=== PATIENT | male | born 1945 | race Hispanic/Latino ===

== ENCOUNTER 2018-04-19 09:42 | Emergency (ER) | payer MEDICARE ==
[2018-04-19 10:00] LABS: BASOPHILS % (AUTO) 1.2 % (0.0-5.0); HEMATOCRIT 43.3 % (42-54); LYMPHOCYTES % (AUTO) 36.9 % (21.0-51.0); MEAN CORPUSCULAR HEMOGLOBIN 29.6 pg (27.0-33.0); MEAN CORPUSCULAR HGB CONC 33.1 g/dL (32.0-36.0); MEAN CORPUSCULAR VOLUME 89.5 fL (79-99); MONOCYTES % (AUTO) 8.5 % (3.0-13.0); NEUTROPHILS % (AUTO) 49.4 % (40.0-77.0); NUCLEATED RED BLOOD CELLS 0.1 % (0.0-0.19); PLATELET COUNT (AUTO) 227 K/uL (130-400); RED BLOOD CELL COUNT(AUTO) 4.84 MIL/uL (4.50-6.20); RED CELL DISTRIBUTION WIDTH 13.8 % (11.0-15.5); WHITE BLOOD COUNT (AUTO) 5.1 K/uL (4.8-10.8)
[2018-04-19 10:06] LABS: CREATININE 1.2 mg/dL (0.5-1.5); POTASSIUM 3.6 mmol/L (3.5-5.1)
[2018-04-19 10:11] LABS: ALBUMIN 3.4 g/dL (3.5-5.0); BILIRUBIN,TOTAL 0.4 mg/dL (0.2-1.0); TOTAL PROTEIN, SERUM 7.4 g/dL (6.0-8.3)
[2018-04-19 10:19] LABS: B-TYPE NATRIURETIC PEPTIDE 21 pg/mL (0-100)
[2018-04-19 10:27] LABS: INR 0.89 (0.85-1.15); PARTIAL THROMBOPLASTIN TIME 27.8 SEC (26.3-35.5); PROTHROMBIN TIME 9.4 SEC (9.6-11.6)
[2018-04-19] MEDS ORDERED: METHYLPREDNISOLONE SOD SUCC 125MG/2ML VIAL ONE (10:47)
[2018-04-19] MEDS ORDERED: GUAIFENESIN-DM 200/20 MG 10 ML ONE (10:47)
[2018-04-19 10:52] LABS: APPEARANCE,URINE Clear (CLEAR); BILIRUBIN,URINE Negative (NEGATIVE); COLOR,URINE Yellow (YELLOW); GLUCOSE, URINE (UA) Negative (NEGATIVE); KETONES,URINE Negative (NEGATIVE); LEUKOCYTE ESTERASE ,URINE Negative (NEGATIVE); NITRATE,URINE Negative (NEGATIVE); OCCULT BLOOD,URINE Negative (NEGATIVE); PROTEIN,URINE Negative (NEGATIVE); UROBILINOGEN,URINE 0.2 mg/dL (0.2-1.0)
== END 2018-04-19 11:16 | disposition home or self-care (01) ==
LOC: EDH 09:42
DX: J20.9 Acute bronchitis, unspecified (principal); E11.9 Type 2 diabetes mellitus without complications; E07.9 Disorder of thyroid, unspecified; E78.5 Hyperlipidemia, unspecified
CPT/HCPCS: 36415; 71045; 80053; 81003; 82550; 83880; 84484; 85025; 85610; 85730; 87804 ×2; 93005; 96374; 99284; J2930

== ENCOUNTER → 2019-06-09 | Outpatient (CLI) | payer MEDICARE | END | disposition home or self-care (01) | LOC: SHCH 14:53 | PROVIDERS: ATTEND Internal Medicine Cardiovascular Disease | DX: I51.7 Cardiomegaly (principal) | CPT/HCPCS: 93306; 93356 ==

== ENCOUNTER → 2019-06-15 | Outpatient (CLI) | payer MEDICARE | END | disposition home or self-care (01) | LOC: SHCH 06-09 14:55 | PROVIDERS: ATTEND Internal Medicine Cardiovascular Disease | DX: R09.89 Other specified symptoms and signs involving the circulatory and respiratory systems (principal) | CPT/HCPCS: 93880 ==

== ENCOUNTER → 2019-06-16 | Outpatient (CLI) | payer MEDICARE ==
[~2019-06-16] MED LIST: REGADENOSON 0.4 MG/5 ML PF SYG IVP ONE
[2019-06-16] MEDS: REGADENOSON 0.4 MG/5 ML PF SYG IVP SCH ×2 (12:44→12:45)
== END | disposition home or self-care (01) ==
LOC: SHCH 06-09 14:57
PROVIDERS: ATTEND Internal Medicine Cardiovascular Disease
DX: R06.09 Other forms of dyspnea (principal); R07.89 Other chest pain; R53.1 Weakness
CPT/HCPCS: 78452; 93017; 96374; A9500 ×2; J2785

== ENCOUNTER 2019-08-18 12:11 | Emergency (ER) | payer MEDICARE ==
[2019-08-18] MEDS ORDERED: LIDOCAINE 5% TOPICAL PATCH TP ONE (12:39)
[2019-08-18] MEDS ORDERED: DIAZEPAM 5 MG TABLET ONE (12:40)
[2019-08-18] MEDS ORDERED: KETOROLAC TROMETHAMINE 30MG/ML ONE (13:18)
== END 2019-08-18 15:01 | disposition home or self-care (01) ==
LOC: EDH 12:11
DX: G57.02 Lesion of sciatic nerve, left lower limb (principal); E11.9 Type 2 diabetes mellitus without complications; E78.5 Hyperlipidemia, unspecified
CPT/HCPCS: 96372; 99283; J1885

== ENCOUNTER 2020-05-19 02:17 | Emergency (ER) | payer MEDICARE ==
[2020-05-19 02:56] LABS: BASOPHILS % (AUTO) 0.6 % (0.0-5.0); EOSINOPHILS % (AUTO) 1.3 % (0.0-8.0); HEMATOCRIT 39.8 % (42-54); MEAN CORPUSCULAR HEMOGLOBIN 29.8 pg (27.0-33.0); MEAN CORPUSCULAR HGB CONC 33.4 g/dL (32.0-36.0); MEAN CORPUSCULAR VOLUME 89.2 fL (79-99); MONOCYTES % (AUTO) 7.4 % (3.0-13.0); NEUTROPHILS % (AUTO) 75.3 % (40.0-77.0); PLATELET COUNT (AUTO) 253 K/uL (130-400); RED BLOOD CELL COUNT(AUTO) 4.46 MIL/uL (4.50-6.20); RED CELL DISTRIBUTION WIDTH 12.7 % (11.0-15.5); WHITE BLOOD COUNT (AUTO) 7.9 K/uL (4.8-10.8)
[2020-05-19] MEDS ORDERED: ASPIRIN 81MG TAB.CHEW ONE (03:01)
[2020-05-19] MEDS ORDERED: FAMOTIDINE/PF 20 MG/2 ML VIAL IV ONE (03:02)
[2020-05-19 03:15] LABS: APPEARANCE,URINE Clear (CLEAR); BILIRUBIN,URINE Negative (NEGATIVE); COLOR,URINE Yellow (YELLOW); GLUCOSE, URINE (UA) Negative (NEGATIVE); KETONES,URINE Trace mg/dL (NEGATIVE); LEUKOCYTE ESTERASE ,URINE Trace (NEGATIVE); NITRATE,URINE Negative (NEGATIVE); OCCULT BLOOD,URINE Negative (NEGATIVE); PH,URINE 6.5 (5.0-8.0); PROTEIN,URINE Negative (NEGATIVE)
[2020-05-19 03:15] LABS: CREATININE 1.2 mg/dL (0.5-1.5); POTASSIUM 4.1 mmol/L (3.5-5.1)
[2020-05-19 03:20] LABS: ALBUMIN 3.5 g/dL (3.5-5.0); BILIRUBIN,TOTAL 0.6 mg/dL (0.2-1.0); TOTAL PROTEIN, SERUM 7.2 g/dL (6.0-8.3)
[2020-05-19 03:30] LABS: BACTERIA,URINE None Seen /HPF (None Seen); RBC,URINE None Seen /HPF (0-1); SQUAMOUS EPITHELIAL CELL,UR Rare /HPF (0-2); WBC,URINE None Seen /HPF (0-1)
[2020-05-19 03:33] LABS: INR 0.98 (0.85-1.15); PROTHROMBIN TIME 10.7 SEC (9.6-11.6)
[2020-05-19 03:34] LABS: PARTIAL THROMBOPLASTIN TIME 24.6 SEC (26.3-35.5)
[2020-05-19 03:35] LABS: B-TYPE NATRIURETIC PEPTIDE 14 pg/mL (0-100)
[2020-05-19] MEDS ORDERED: ONDANSETRON HCL 4 MG/2 ML VIAL ONE (04:49)
[2020-05-19] MEDS ORDERED: IOHEXOL 350 MG/ML 100ML INFUS..BTL IV ONE (07:45)
== END 2020-05-19 09:52 | disposition home or self-care (01) ==
LOC: EDH 02:17
DX: R10.9 Unspecified abdominal pain (principal); R11.10 Vomiting, unspecified; E11.9 Type 2 diabetes mellitus without complications; E78.5 Hyperlipidemia, unspecified
CPT/HCPCS: 36415; 74177; 80053; 81001; 83690; 83880; 84484 ×2; 85025; 85610; 85730; 93005 ×2; 96374; 96375; 99285; J2405; J3490; Q9967

== ENCOUNTER → 2020-09-19 | Outpatient (CLI) | payer MEDICARE | END | disposition home or self-care (01) | LOC: RAH 10:53 | PROVIDERS: ATTEND Physical Medicine & Rehabilitation | DX: M47.22 Other spondylosis with radiculopathy, cervical region (principal); M48.02 Spinal stenosis, cervical region | CPT/HCPCS: 72052 ==

== ENCOUNTER 2020-10-30 09:02 | Emergency (ER) | payer MEDICARE ==
[~2020-10-30] VITALS: Ht 167.6 cm; Wt 79.8 kg
[2020-10-30] MEDS ORDERED: HYDROMORPHONE 0.5 MG SYG (0.5MG/0.5ML) IVP ONE (09:30)
[2020-10-30] MEDS ORDERED: ONDANSETRON 4MG INJ IVP ONE (09:30)
[2020-10-30] MEDS ORDERED: ONDANSETRON 4MG TABLET PO ONE (10:00)
[2020-10-30 10:04] LABS: BASOPHILS % (AUTO) 0.8 % (0.0-5.0); EOSINOPHILS % (AUTO) 2.3 % (0.0-8.0); HEMATOCRIT 42.8 % (42-54); MEAN CORPUSCULAR HEMOGLOBIN 29.9 pg (27.0-33.0); MEAN CORPUSCULAR HGB CONC 32.9 g/dL (32.0-36.0); MEAN CORPUSCULAR VOLUME 90.9 fL (79-99); MONOCYTES % (AUTO) 7.6 % (3.0-13.0); NEUTROPHILS % (AUTO) 73.9 % (40.0-77.0); PLATELET COUNT (AUTO) 215 K/uL (130-400); RED BLOOD CELL COUNT(AUTO) 4.71 MIL/uL (4.50-6.20); RED CELL DISTRIBUTION WIDTH 12.5 % (11.0-15.5); WHITE BLOOD COUNT (AUTO) 8.3 K/uL (4.8-10.8)
[2020-10-30 10:11] LABS: CREATININE 1.3 mg/dL (0.5-1.5); POTASSIUM 4.3 mmol/L (3.5-5.1)
[2020-10-30 10:18] LABS: ALBUMIN 3.8 g/dL (3.5-5.0); BILIRUBIN,TOTAL 0.6 mg/dL (0.2-1.0); TOTAL PROTEIN, SERUM 7.4 g/dL (6.0-8.3)
[2020-10-30] MEDS ORDERED: METR500T PO (10:55)
[2020-10-30] MEDS ORDERED: DICY20TA2 PO (10:55)
[2020-10-30] MEDS ORDERED: CIPR500T10 PO (10:55)
[2020-10-30] MEDS ORDERED: ONDANSETRON 4MG INJ ONE (11:26)
[2020-10-30] MEDS ORDERED: HYDROMORPHONE 0.5 MG SYG (0.5MG/0.5ML) ONE (11:26)
[2020-10-30 11:35] VITALS: BP 129/72
== END 2020-10-30 11:54 | disposition home or self-care (01) ==
LOC: EDH 09:02
DX: K57.32 Diverticulitis of large intestine without perforation or abscess without bleeding (principal); Z79.899 Other long term (current) drug therapy
CPT/HCPCS: 36415; 74176; 80053; 82150; 83690; 85025; 96374; 96375; 99284; J1170; J2405

== ENCOUNTER 2021-04-24 10:15 | Emergency (ER) | payer MEDICARE ==
[~2021-04-24] VITALS: Ht 167.6 cm; Wt 82.6 kg
[~2021-04-24 10:15] MED LIST changes: +ASPI-1197 PO; +EZET10TA13 PO; +LEVO75TA4 PO; +MULT-1367 PO; +RANO500T6 PO; -REGADENOSON 0.4 MG/5 ML PF SYG IVP ONE; +ROSU40TA21 PO; +SILD100T PO; +TAMS-1 PO
[2021-04-24 13:36] LABS: BASOPHILS % (AUTO) 1.1 % (0.0-5.0); EOSINOPHILS % (AUTO) 2.8 % (0.0-8.0); HEMATOCRIT 42.5 % (42-54); LYMPHOCYTES % (AUTO) 25.6 % (21.0-51.0); MEAN CORPUSCULAR HEMOGLOBIN 29.3 pg (27.0-33.0); MEAN CORPUSCULAR HGB CONC 33.6 g/dL (32.0-36.0); MEAN CORPUSCULAR VOLUME 87.1 fL (79-99); MONOCYTES % (AUTO) 9.5 % (3.0-13.0); NEUTROPHILS % (AUTO) 60.8 % (40.0-77.0); PLATELET COUNT (AUTO) 190 K/uL (130-400); RED BLOOD CELL COUNT(AUTO) 4.88 MIL/uL (4.50-6.20); RED CELL DISTRIBUTION WIDTH 12.4 % (11.0-15.5); WHITE BLOOD COUNT (AUTO) 5.4 K/uL (4.8-10.8)
[2021-04-24 13:44] LABS: CREATININE 1.3 mg/dL (0.5-1.5); POTASSIUM 3.9 mmol/L (3.5-5.1)
[2021-04-24 13:48] LABS: ALBUMIN 3.7 g/dL (3.5-5.0); BILIRUBIN,TOTAL 0.4 mg/dL (0.2-1.0); TOTAL PROTEIN, SERUM 7.1 g/dL (6.0-8.3)
[2021-04-24 14:05] LABS: B-TYPE NATRIURETIC PEPTIDE 16 pg/mL (0-100)
[2021-04-24 14:47] VITALS: BP 140/67
== END 2021-04-24 15:07 | disposition home or self-care (01) ==
LOC: EDH 10:15
DX: R42 Dizziness and giddiness (principal); E03.9 Hypothyroidism, unspecified; Z79.82 Long term (current) use of aspirin; Z79.899 Other long term (current) drug therapy
CPT/HCPCS: 36415; 70450; 71045; 80053; 83880; 84484; 85025; 93005

== ENCOUNTER → 2021-05-16 | Outpatient (CLI) | payer MEDICARE | END | disposition home or self-care (01) | LOC: RAH 10:58 | PROVIDERS: ATTEND Physical Medicine & Rehabilitation | DX: M48.02 Spinal stenosis, cervical region (principal); M47.812 Spondylosis without myelopathy or radiculopathy, cervical region | CPT/HCPCS: 72141 ==

== ENCOUNTER → 2021-05-20 | Outpatient (CLI) | payer MEDICARE | END | disposition home or self-care (01) | LOC: SHCH 11:06 | PROVIDERS: ATTEND Internal Medicine Cardiovascular Disease | DX: I25.110 Atherosclerotic heart disease of native coronary artery with unstable angina pectoris (principal); I77.9 Disorder of arteries and arterioles, unspecified | CPT/HCPCS: 93880 ==

== ENCOUNTER 2021-06-17 23:57 | Emergency (ER) | payer MEDICARE ==
[~2021-06-17] VITALS: Ht 167.6 cm; Wt 86.6 kg
[2021-06-18] MEDS ORDERED: LACTATED RINGERS 1000ML 1,000 ML IV ONE (00:30)
[2021-06-18] MEDS ORDERED: PANTOPRAZOLE 40 MG/VIAL IVP ONE (00:30)
[2021-06-18 00:43] LABS: BASOPHILS % (AUTO) 0.8 % (0.0-5.0); EOSINOPHILS % (AUTO) 2.7 % (0.0-8.0); HEMATOCRIT 42.1 % (42-54); LYMPHOCYTES % (AUTO) 16.2 % (21.0-51.0); MEAN CORPUSCULAR HEMOGLOBIN 29.8 pg (27.0-33.0); MEAN CORPUSCULAR VOLUME 87.7 fL (79-99); MONOCYTES % (AUTO) 7.5 % (3.0-13.0); NEUTROPHILS % (AUTO) 72.5 % (40.0-77.0); PLATELET COUNT (AUTO) 193 K/uL (130-400); RED CELL DISTRIBUTION WIDTH 12.7 % (11.0-15.5); WHITE BLOOD COUNT (AUTO) 9.5 K/uL (4.8-10.8)
[2021-06-18 01:03] LABS: APPEARANCE,URINE Clear (CLEAR); BILIRUBIN,URINE Negative (NEGATIVE); COLOR,URINE Yellow (YELLOW); GLUCOSE, URINE (UA) Negative (NEGATIVE); KETONES,URINE Negative (NEGATIVE); LEUKOCYTE ESTERASE ,URINE Negative (NEGATIVE); NITRATE,URINE Negative (NEGATIVE); OCCULT BLOOD,URINE Trace (NEGATIVE); PH,URINE 5.5 (5.0-8.0); PROTEIN,URINE Negative (NEGATIVE); UROBILINOGEN,URINE 0.2 mg/dL (0.2-1.0)
[2021-06-18 01:14] LABS: CREATININE 1.4 mg/dL (0.5-1.5); POTASSIUM 3.6 mmol/L (3.5-5.1)
[2021-06-18 01:16] LABS: BACTERIA,URINE Rare /HPF (None Seen); SQUAMOUS EPITHELIAL CELL,UR 0-2 /HPF (0-2); WBC,URINE 0-1 /HPF (0-1)
[2021-06-18 01:18] LABS: ALBUMIN 3.7 g/dL (3.5-5.0); BILIRUBIN,TOTAL 0.3 mg/dL (0.2-1.0); TOTAL PROTEIN, SERUM 7.1 g/dL (6.0-8.3)
[2021-06-18] MEDS ORDERED: MORPHINE 2 MG SYG ONE (01:27)
[2021-06-18] MEDS ORDERED: ONDANSETRON 4MG INJ ONE (01:27)
[2021-06-18] MEDS ORDERED: ONDANSETRON 4MG INJ IVP ONE (01:30)
[2021-06-18] MEDS ORDERED: MORPHINE 2 MG SYG IVP ONE (01:30)
[2021-06-18] MEDS ORDERED: IOHEXOL 350 MG/ML 100ML INFUS..BTL IV ONE (02:21)
[2021-06-18] MEDS ORDERED: ZOSYN 3.375GM +NS 50ML IV SCH (04:00)
[2021-06-18] MEDS ORDERED: AMOX-427 PO (04:09)
[2021-06-18 04:19] VITALS: BP 148/63
== END 2021-06-18 05:17 | disposition home or self-care (01) ==
LOC: EDH 23:57
DX: K57.90 Diverticulosis of intestine, part unspecified, without perforation or abscess without bleeding (principal); K57.92 Diverticulitis of intestine, part unspecified, without perforation or abscess without bleeding; E78.00 Pure hypercholesterolemia, unspecified; E86.0 Dehydration; R19.7 Diarrhea, unspecified; E03.9 Hypothyroidism, unspecified; Z98.890 Other specified postprocedural states; Z79.82 Long term (current) use of aspirin; Z79.899 Other long term (current) drug therapy
CPT/HCPCS: 36415; 74177; 80053; 81001; 83690; 84484; 85025; 93005; 96361; 96365; 96375; 99285; C9113; J2405; J2543; J7120; Q9967

== ENCOUNTER → 2021-10-15 | Outpatient (CLI) | payer MEDICARE ==
[~2021-10-15] MED LIST changes: +AMOX-427 PO; +REGADENOSON 0.4 MG/5 ML PF SYG IVP SCH
== END | disposition home or self-care (01) ==
LOC: SHCH 08:07
PROVIDERS: ATTEND Internal Medicine Cardiovascular Disease
DX: I20.0 Unstable angina (principal); R07.9 Chest pain, unspecified; R94.39 Abnormal result of other cardiovascular function study; Z95.0 Presence of cardiac pacemaker
CPT/HCPCS: 78452; 93017; 96374; A9500 ×2; J2785

== ENCOUNTER → 2021-10-30 | Outpatient (CLI) | payer MEDICARE ==
[~2021-10-30] MED LIST changes: -REGADENOSON 0.4 MG/5 ML PF SYG IVP SCH
== END | disposition home or self-care (01) ==
LOC: RAH 08:53
PROVIDERS: ATTEND Nurse Practitioner Family
DX: R41.3 Other amnesia (principal)
CPT/HCPCS: 70551

== ENCOUNTER → 2022-01-03 | Outpatient (CLI) | payer MEDICARE | END | disposition home or self-care (01) | LOC: RAH 10:13 | PROVIDERS: ATTEND Physical Medicine & Rehabilitation | DX: M47.26 Other spondylosis with radiculopathy, lumbar region (principal); M48.07 Spinal stenosis, lumbosacral region | CPT/HCPCS: 72114 ==

== ENCOUNTER 2022-04-25 06:43 | Emergency (ER) | payer MEDICARE, OTHER ==
[~2022-04-25] VITALS: Ht 167.6 cm; Wt 83.5 kg
[2022-04-25 07:13] LABS: BASOPHILS % (AUTO) 0.7 % (0.0-5.0); EOSINOPHILS % (AUTO) 1.3 % (0.0-8.0); HEMATOCRIT 41.4 % (42-54); LYMPHOCYTES % (AUTO) 11.6 % (21.0-51.0); MEAN CORPUSCULAR HGB CONC 34.3 g/dL (32.0-36.0); MEAN CORPUSCULAR VOLUME 87.5 fL (79-99); MONOCYTES % (AUTO) 7.8 % (3.0-13.0); NEUTROPHILS % (AUTO) 78.4 % (40.0-77.0); PLATELET COUNT (AUTO) 199 K/uL (130-400); RED BLOOD CELL COUNT(AUTO) 4.73 MIL/uL (4.50-6.20); RED CELL DISTRIBUTION WIDTH 12.7 % (11.0-15.5); WHITE BLOOD COUNT (AUTO) 8.4 K/uL (4.8-10.8)
[2022-04-25 07:27] LABS: ALBUMIN 3.5 g/dL (3.5-5.0); CREATININE 1.3 mg/dL (0.5-1.5); POTASSIUM 3.6 mmol/L (3.5-5.1); TOTAL PROTEIN, SERUM 6.9 g/dL (6.0-8.3)
[2022-04-25] MEDS ORDERED: 0.9%NACL 1000ML 1,000 ML IV ONE (07:30)
[2022-04-25] MEDS ORDERED: PANTOPRAZOLE 40 MG/VIAL IVP STA (08:03)
[2022-04-25 08:25] LABS: APPEARANCE,URINE CLEAR (CLEAR); BILIRUBIN,URINE NEGATIVE (NEGATIVE); COLOR,URINE LIGHT-YELLOW (YELLOW); GLUCOSE, URINE (UA) NEGATIVE (NEGATIVE); KETONES,URINE 5 mg/dL (NEGATIVE); LEUKOCYTE ESTERASE ,URINE NEGATIVE Leu/uL (NEGATIVE); NITRATE,URINE NEGATIVE (NEGATIVE); OCCULT BLOOD,URINE SMALL (NEGATIVE); PROTEIN,URINE NEGATIVE (NEGATIVE); UROBILINOGEN,URINE 0.2 mg/dL (0.2-1.0)
[2022-04-25] MEDS ORDERED: ZOSYN 3.375GM +NS 50ML IV ONE (08:30)
[2022-04-25 08:52] LABS: MUCUS,URINE RARE LPF (None Seen); SQUAMOUS EPITHELIAL CELL,UR RARE /HPF (0-2)
[2022-04-25] MEDS ORDERED: LEVO750T68 PO (09:03)
[2022-04-25 10:04] VITALS: BP 116/50
== END 2022-04-25 10:09 | disposition home or self-care (01) ==
LOC: EDH 06:43
DX: K57.92 Diverticulitis of intestine, part unspecified, without perforation or abscess without bleeding (principal); E03.9 Hypothyroidism, unspecified; E78.00 Pure hypercholesterolemia, unspecified; Z79.82 Long term (current) use of aspirin; Z95.0 Presence of cardiac pacemaker; Z79.2 Long term (current) use of antibiotics; Z79.899 Other long term (current) drug therapy
CPT/HCPCS: 99285; 74176; 96365; 96361; 96375; 80053; 83690; 85025; 81001; 36415; 93005; J7030; J2543; C9113

== ENCOUNTER 2023-02-04 01:02 | Emergency (ER) | payer OTHER ==
[~2023-02-04] VITALS: Ht 167.6 cm; Wt 82.6 kg
[~2023-02-04 01:02] MED LIST changes: -EZET10TA13 PO; +EZET10TA81 PO; +LEVO750T68 PO
[2023-02-04 01:03] VITALS: BP 166/85; PULSE 78; RESP 18; O2SAT 97
[2023-02-04 01:28] LABS: BASOPHILS # (AUTO) 0.08 K/uL (0.00-0.20); BASOPHILS % (AUTO) 0.9 % (0.0-5.0); EOSINOPHILS # (AUTO) 0.25 K/uL (0.00-0.70); EOSINOPHILS % (AUTO) 2.7 % (0.0-8.0); HEMATOCRIT 42.2 % (42-54); IMMATURE GRANULOCYTE ABSOLUTE 0.03 K/uL (0-1); LYMPHOCYTES # (AUTO) 1.6 K/uL (1.0-4.8); LYMPHOCYTES % (AUTO) 17.8 % (21.0-51.0); MEAN CORPUSCULAR HEMOGLOBIN 30.1 pg (27.0-33.0); MEAN CORPUSCULAR HGB CONC 33.4 g/dL (32.0-36.0); MONOCYTES # (AUTO) 0.8 K/uL (0.1-1.0); MONOCYTES % (AUTO) 8.3 % (3.0-13.0); NEUTROPHILS # (AUTO) 6.5 K/uL (1.8-7.7); PLATELET COUNT (AUTO) 194 K/uL (130-400); RED BLOOD CELL COUNT(AUTO) 4.69 MIL/uL (4.50-6.20); RED CELL DISTRIBUTION WIDTH 12.4 % (11.0-15.5); WHITE BLOOD COUNT (AUTO) 9.2 K/uL (4.8-10.8)
[2023-02-04 01:35] LABS: APPEARANCE,URINE CLEAR (CLEAR); BILIRUBIN,URINE NEGATIVE (NEGATIVE); GLUCOSE, URINE (UA) NEGATIVE (NEGATIVE); KETONES,URINE NEGATIVE (NEGATIVE); LEUKOCYTE ESTERASE ,URINE NEGATIVE Leu/uL (NEGATIVE); NITRATE,URINE NEGATIVE (NEGATIVE); OCCULT BLOOD,URINE SMALL (NEGATIVE); PROTEIN,URINE NEGATIVE (NEGATIVE); UROBILINOGEN,URINE 0.2 mg/dL (0.2-1.0)
[2023-02-04 01:38] LABS: CREATININE 1.3 mg/dL (0.5-1.5); POTASSIUM 3.9 mmol/L (3.5-5.1)
[2023-02-04 01:41] LABS: ADD UA MICROSCOPIC YES; COLOR,URINE Light-Yellow (YELLOW)
[2023-02-04 01:42] LABS: ALBUMIN 3.7 g/dL (3.5-5.0); BILIRUBIN,TOTAL 0.4 mg/dL (0.2-1.0); TOTAL PROTEIN, SERUM 7.2 g/dL (6.0-8.3)
[2023-02-04 01:44] LABS: MUCUS,URINE RARE LPF (None Seen); RBC,URINE 0-1 /HPF (0-1); WBC,URINE 0-1 /HPF (0-1)
[2023-02-04] MEDS ORDERED: IOHEXOL 350 MG/ML 100ML INFUS..BTL IV ONE (02:50)
[2023-02-04] MEDS ORDERED: IBUP-1493 PO (03:58)
[2023-02-04] MEDS ORDERED: LEVO-70 PO (03:58)
[2023-02-04] MEDS ORDERED: AMOX1TAB16 PO (03:58)
[2023-02-04] MEDS ORDERED: LEVOFLOXACIN 750 MG TABLET PO SCH (04:00)
[2023-02-04] MEDS ORDERED: IBUPROFEN 800 MG TAB PO ONE (04:30)
== END 2023-02-04 04:23 | disposition home or self-care (01) ==
LOC: EDH 01:04
DX: K57.32 Diverticulitis of large intestine without perforation or abscess without bleeding (principal); E11.9 Type 2 diabetes mellitus without complications; Z79.82 Long term (current) use of aspirin; Z95.810 Presence of automatic (implantable) cardiac defibrillator
CPT/HCPCS: 99285; 74177; 84484; 80053; 83690; 85025; 81001; 36415; 93005; Q9967

== ENCOUNTER 2023-02-08 12:13 | Emergency (ER) | payer OTHER ==
[~2023-02-08] VITALS: Ht 167.6 cm; Wt 81.6 kg
[~2023-02-08 12:13] MED LIST changes: -AMOX-427 PO; +AMOX1TAB16 PO; +IBUP-1493 PO; +LEVO-70 PO; -LEVO750T68 PO
[2023-02-08 12:51] LABS: BASOPHILS # (AUTO) 0.06 K/uL (0.00-0.20); BASOPHILS % (AUTO) 0.5 % (0.0-5.0); EOSINOPHILS # (AUTO) 0.09 K/uL (0.00-0.70); EOSINOPHILS % (AUTO) 0.8 % (0.0-8.0); HEMATOCRIT 43.8 % (42-54); IMMATURE GRANULOCYTE ABSOLUTE 0.03 K/uL (0-1); LYMPHOCYTES # (AUTO) 1.7 K/uL (1.0-4.8); LYMPHOCYTES % (AUTO) 15.3 % (21.0-51.0); MEAN CORPUSCULAR HEMOGLOBIN 30.2 pg (27.0-33.0); MEAN CORPUSCULAR VOLUME 88.8 fL (79-99); MONOCYTES # (AUTO) 0.8 K/uL (0.1-1.0); MONOCYTES % (AUTO) 7.4 % (3.0-13.0); NEUTROPHILS # (AUTO) 8.5 K/uL (1.8-7.7); NEUTROPHILS % (AUTO) 75.7 % (40.0-77.0); PLATELET COUNT (AUTO) 230 K/uL (130-400); RED BLOOD CELL COUNT(AUTO) 4.93 MIL/uL (4.50-6.20); RED CELL DISTRIBUTION WIDTH 12.4 % (11.0-15.5); WHITE BLOOD COUNT (AUTO) 11.2 K/uL (4.8-10.8)
[2023-02-08 13:00] LABS: CREATININE 1.4 mg/dL (0.5-1.5); POTASSIUM 3.6 mmol/L (3.5-5.1)
[2023-02-08 13:09] LABS: ALBUMIN 3.8 g/dL (3.5-5.0); BILIRUBIN,TOTAL 0.7 mg/dL (0.2-1.0); TOTAL PROTEIN, SERUM 7.9 g/dL (6.0-8.3)
[2023-02-08 16:05] VITALS: BP 158/78; PULSE 88; RESP 18; O2SAT 99
[2023-02-08 16:05] LABS: APPEARANCE,URINE CLEAR (CLEAR); BILIRUBIN,URINE NEGATIVE (NEGATIVE); COLOR,URINE LIGHT-YELLOW (YELLOW); GLUCOSE, URINE (UA) NEGATIVE (NEGATIVE); KETONES,URINE NEGATIVE (NEGATIVE); LEUKOCYTE ESTERASE ,URINE NEGATIVE Leu/uL (NEGATIVE); NITRATE,URINE NEGATIVE (NEGATIVE); OCCULT BLOOD,URINE SMALL (NEGATIVE); PROTEIN,URINE NEGATIVE (NEGATIVE); UROBILINOGEN,URINE 0.2 mg/dL (0.2-1.0)
[2023-02-08 16:06] LABS: ADD UA MICROSCOPIC YES
[2023-02-08 16:19] LABS: MUCUS,URINE RARE LPF (None Seen); RBC,URINE 0-1 /HPF (0-1); WBC,URINE 0-1 /HPF (0-1)
== END 2023-02-08 16:10 | disposition home or self-care (01) ==
LOC: EDH 12:13
DX: K57.32 Diverticulitis of large intestine without perforation or abscess without bleeding (principal); R10.32 Left lower quadrant pain; E03.9 Hypothyroidism, unspecified; E11.9 Type 2 diabetes mellitus without complications; Z79.899 Other long term (current) drug therapy
CPT/HCPCS: 36415; 80053; 81001; 83690; 84484; 85025; 93005

== ENCOUNTER → 2023-07-13 | Outpatient (CLI) | payer OTHER | END | disposition home or self-care (01) | LOC: RAH 12:37 | PROVIDERS: ATTEND Physician Assistant | DX: M25.551 Pain in right hip (principal); M25.552 Pain in left hip | CPT/HCPCS: 73521 ==

== ENCOUNTER 2023-08-03 20:36 | Emergency (ER) | payer OTHER ==
[~2023-08-03] VITALS: Ht 167.6 cm; Wt 83.0 kg
[2023-08-03 22:02] LABS: BASOPHILS # (AUTO) 0.07 K/uL (0.00-0.20); BASOPHILS % (AUTO) 0.5 % (0.0-5.0); EOSINOPHILS % (AUTO) 0.8 % (0.0-8.0); IMMATURE GRANULOCYTE ABSOLUTE 0.06 K/uL (0-1); LYMPHOCYTES # (AUTO) 1.1 K/uL (1.0-4.8); LYMPHOCYTES % (AUTO) 8.2 % (21.0-51.0); MEAN CORPUSCULAR HEMOGLOBIN 30.5 pg (27.0-33.0); MEAN CORPUSCULAR HGB CONC 34.8 g/dL (32.0-36.0); MEAN CORPUSCULAR VOLUME 87.8 fL (79-99); MONOCYTES # (AUTO) 0.8 K/uL (0.1-1.0); MONOCYTES % (AUTO) 6.4 % (3.0-13.0); NEUTROPHILS # (AUTO) 10.9 K/uL (1.8-7.7); NEUTROPHILS % (AUTO) 83.6 % (40.0-77.0); PLATELET COUNT (AUTO) 214 K/uL (130-400); RED BLOOD CELL COUNT(AUTO) 5.01 MIL/uL (4.50-6.20)
[2023-08-03 22:14] LABS: CREATININE 1.2 mg/dL (0.5-1.3); POTASSIUM 3.8 mmol/L (3.5-5.1)
[2023-08-03 22:19] LABS: BILIRUBIN,TOTAL 0.6 mg/dL (0.2-1.0); TOTAL PROTEIN, SERUM 7.7 g/dL (6.0-8.3)
[2023-08-03 22:26] LABS: APPEARANCE,URINE CLEAR (CLEAR); BILIRUBIN,URINE NEGATIVE (NEGATIVE); COLOR,URINE LIGHT-YELLOW (YELLOW); GLUCOSE, URINE (UA) NEGATIVE (NEGATIVE); KETONES,URINE NEGATIVE (NEGATIVE); LEUKOCYTE ESTERASE ,URINE NEGATIVE Leu/uL (NEGATIVE); NITRATE,URINE NEGATIVE (NEGATIVE); OCCULT BLOOD,URINE MODERATE (NEGATIVE); PROTEIN,URINE NEGATIVE (NEGATIVE); UROBILINOGEN,URINE 0.2 mg/dL (0.2-1.0)
[2023-08-03 22:27] LABS: ADD UA MICROSCOPIC YES
[2023-08-03 22:28] LABS: B-TYPE NATRIURETIC PEPTIDE 36 pg/mL (0-100)
[2023-08-03 22:31] LABS: RAPID GROUP A STREP negative (NEGATIVE)
[2023-08-03 22:38] LABS: SARS-CoV-2, RNA, NAAT NEGATIVE SARS CoV-2 (NEGATIVE)
[2023-08-03 22:40] LABS: SQUAMOUS EPITHELIAL CELL,UR RARE /HPF (0-2); WBC,URINE 0-1 /HPF (0-1)
[2023-08-03 22:41] VITALS: PULSE 19
[2023-08-03] MEDS: IPRATROPIUM/ALBUTEROL SULFATE 3 ML SOLUTION IH ONE ×2 (22:41)
[2023-08-03 22:42] LABS: INFLUENZA TYPE A Negative For Type A (NEGATIVE); INFLUENZA TYPE B Negative For Type B (NEGATIVE)
[2023-08-03] MEDS: SOLU-MEDROL 125MG VIAL IVP ONE (22:43)
[2023-08-03] MEDS: ONDANSETRON 4MG INJ IVP ONE (22:43)
[2023-08-04] MEDS ORDERED: PRED20TA3 PO (00:37)
[2023-08-04] MEDS ORDERED: ALBU90AE2 IH (00:37)
[2023-08-04] MEDS ORDERED: CEFU500T67 PO (00:37)
[2023-08-04 00:51] VITALS: BP 148/79; PULSE 97; RESP 18; O2SAT 98
== END 2023-08-04 00:57 | disposition home or self-care (01) ==
LOC: EDH 20:36
DX: J20.9 Acute bronchitis, unspecified (principal); R06.02 Shortness of breath; R11.2 Nausea with vomiting, unspecified; R07.9 Chest pain, unspecified; E03.9 Hypothyroidism, unspecified; E11.9 Type 2 diabetes mellitus without complications; E78.00 Pure hypercholesterolemia, unspecified; Z20.822 Contact with and (suspected) exposure to COVID-19; Z79.82 Long term (current) use of aspirin; Z79.899 Other long term (current) drug therapy; Z98.890 Other specified postprocedural states
CPT/HCPCS: 99284; 96374; 71045; 87635; 96375; 84484; 80053; 83880; 85025; 87880; 87804 ×2; 81001; 36415; 93005; 94640; J2930; J2405

== ENCOUNTER 2023-09-27 18:19 | Emergency (ER) | payer OTHER ==
[~2023-09-27] VITALS: Ht 167.6 cm; Wt 81.6 kg
[~2023-09-27 18:19] MED LIST changes: +ALBU90AE3 IH; -AMOX1TAB16 PO; +CEFU500T67 PO; -LEVO-70 PO; +PRED20TA3 PO; -ROSU40TA21 PO; +ROSU40TA70 PO
[2023-09-27 18:42] LABS: BASOPHILS # (AUTO) 0.08 K/uL (0.00-0.20); BASOPHILS % (AUTO) 1.2 % (0.0-5.0); EOSINOPHILS # (AUTO) 0.44 K/uL (0.00-0.70); EOSINOPHILS % (AUTO) 6.4 % (0.0-8.0); HEMATOCRIT 41.3 % (42-54); IMMATURE GRANULOCYTE ABSOLUTE 0.01 K/uL (0-1); LYMPHOCYTES # (AUTO) 2.8 K/uL (1.0-4.8); LYMPHOCYTES % (AUTO) 40.2 % (21.0-51.0); MEAN CORPUSCULAR HEMOGLOBIN 30.2 pg (27.0-33.0); MEAN CORPUSCULAR HGB CONC 34.1 g/dL (32.0-36.0); MEAN CORPUSCULAR VOLUME 88.4 fL (79-99); MONOCYTES # (AUTO) 0.6 K/uL (0.1-1.0); MONOCYTES % (AUTO) 8.2 % (3.0-13.0); NEUTROPHILS % (AUTO) 43.9 % (40.0-77.0); PLATELET COUNT (AUTO) 244 K/uL (130-400); RED BLOOD CELL COUNT(AUTO) 4.67 MIL/uL (4.50-6.20); RED CELL DISTRIBUTION WIDTH 12.8 % (11.0-15.5); WHITE BLOOD COUNT (AUTO) 6.9 K/uL (4.8-10.8)
[2023-09-27 18:55] LABS: CREATININE 1.2 mg/dL (0.5-1.3); POTASSIUM 3.6 mmol/L (3.5-5.1)
[2023-09-27 19:04] LABS: ALBUMIN 3.6 g/dL (3.5-5.0); BILIRUBIN,TOTAL 0.4 mg/dL (0.2-1.0); TOTAL PROTEIN, SERUM 7.3 g/dL (6.0-8.3)
[2023-09-27 19:28] LABS: INR <= 0.93 (0.85-1.15); PROTHROMBIN TIME 10.3 SEC (9.6-11.6)
[2023-09-27 19:29] LABS: PARTIAL THROMBOPLASTIN TIME 26.9 SEC (26.3-35.5)
[2023-09-27 19:32] VITALS: BP 146/66; PULSE 77; RESP 17; O2SAT 99
[2023-09-27] MEDS ORDERED: CEPH500B PO (20:21)
== END 2023-09-27 20:36 | disposition home or self-care (01) ==
LOC: EDH 18:19
DX: I10 Essential (primary) hypertension (principal); M79.602 Pain in left arm; E11.9 Type 2 diabetes mellitus without complications; E78.00 Pure hypercholesterolemia, unspecified; E03.9 Hypothyroidism, unspecified; Z95.0 Presence of cardiac pacemaker; Z79.899 Other long term (current) drug therapy; Z79.2 Long term (current) use of antibiotics; Z79.82 Long term (current) use of aspirin
CPT/HCPCS: 36415; 71045; 80053; 83605; 84145; 84484; 85025; 85610; 85730; 93005

== ENCOUNTER → 2023-10-21 | Outpatient (CLI) | payer OTHER ==
[~2023-10-21] MED LIST changes: +CEPH500B PO
== END | disposition home or self-care (01) ==
LOC: SHCH 12:52
PROVIDERS: ATTEND Internal Medicine Cardiovascular Disease
DX: I87.2 Venous insufficiency (chronic) (peripheral) (principal); I82.433 Acute embolism and thrombosis of popliteal vein, bilateral; I82.413 Acute embolism and thrombosis of femoral vein, bilateral
CPT/HCPCS: 93970

== ENCOUNTER → 2024-01-06 | Outpatient (CLI) | payer OTHER ==
[~2024-01-06] MED LIST changes: +IOHEXOL 350 MG/ML 100ML INFUS..BTL IV ONE; -ROSU40TA70 PO; +ROSU40TA88 PO; +metoPROLOL tartRATE 1 MG/ML 5ML VIAL IV ONE
== END | disposition home or self-care (01) ==
LOC: RAH 10:34
PROVIDERS: ATTEND Internal Medicine Cardiovascular Disease
DX: I25.10 Atherosclerotic heart disease of native coronary artery without angina pectoris (principal); R07.9 Chest pain, unspecified; R94.39 Abnormal result of other cardiovascular function study; I47.10 Supraventricular tachycardia, unspecified
CPT/HCPCS: 75574; J3490; Q9967

== ENCOUNTER 2024-09-30 07:17 | Emergency (ER) | payer OTHER ==
[~2024-09-30] VITALS: Ht 167.6 cm; Wt 82.1 kg
[~2024-09-30 07:17] MED LIST changes: -IOHEXOL 350 MG/ML 100ML INFUS..BTL IV ONE; -TAMS-1 PO; +TAMS-55 PO; -metoPROLOL tartRATE 1 MG/ML 5ML VIAL IV ONE
--- NOTE | 2024-09-30 07:43 | ERN ---
General Chief Complaint: Abdominal Pain Stated Complaint: ABDOMINAL PAIN Time Seen by MD: 07:20 History of Present Illness Initial Comments 79M presents for lower abdominal pain for one week. Patient reports some to [place]. He had urgency and increased urination with some suprapubic pain. He went to his primary provider and an was prescribed Levaquin. He has taken three doses. He reports that he felt like he was improving, but today he continues with a lower abdominal pain. He reports he has a history of diverticulitis, and he is concerned that this may be causing his symptoms. No fevers. No flank pain. No vomiting. P.o. tolerant. No diarrhea or bloody stool. Allergies: Coded Allergies: No Known Drug Allergies (Unverified Allergy, 03/24/12) Home Meds Active Scripts Cephalexin Monohydrate (Keflex) 500 Mg Cap, 500 MG PO BID for 7 Days, #14 CAP Prov:EMELY ADAMS MD 09/27/23 Albuterol Sulfate (Proair Digihaler) 90 Mcg Aer.pw.bas, 2 PUFF IH QID, #1 UNIT Prov:JEAN RENEE MD 08/04/23 Prednisone (Prednisone) 20 Mg Tablet, 1 TAB PO AD for 6 Days, #14 TAB 0 Refills TAKE 3 TAB BY MOUTH daily X3 DAYS, THEN TAKE 2 TAB BY MOUTH daily X2 DAYS, THEN TAKE 1 TAB BY MOUTH ONCE A DAY X1 DAY. Prov:JEAN RENEE MD 08/04/23 Cefuroxime Axetil (Cefuroxime) 500 Mg Tablet, 500 MG PO BID, #20 TAB Prov:JEAN RENEE MD 08/04/23 Ibuprofen (Motrin/Advil) 800 Mg Tab, 800 MG PO TID, #30 TAB Prov:JEAN RENEE MD 02/04/23 Reported Medications Tamsulosin HCl (Flomax) 0.4 Mg Cap.er.24h, 0.4 MG PO DAILY, CAPSULE. 11/17/20 Rosuvastatin Calcium (Rosuvastatin Calcium) 40 Mg Tablet, 40 MG PO HS, TAB 11/17/20 Sildenafil Citrate (Viagra) 100 Mg Tablet, 100 MG PO AD, TAB 11/17/20 Multivitamin (Multivitamin) 1 Each Tablet, 1 EACH PO DAILY, TAB 11/17/20 Aspirin (Aspirin) 81 Mg Tab.chew, 81 MG PO DAILY, TAB.CHEW 11/17/20 Levothyroxine Sodium (Synthroid 75 Mcg Tab) 75 Mcg Tablet, 75 MCG PO ACBKFST, TAB 11/17/20 Ezetimibe (Zetia) 10 Mg Tablet, 10 MG PO HS, TAB 11/17/20 Ranolazine (Ranolazine ER) 500 Mg Tab.er.12h, 500 MG PO BID, TAB 11/17/20 Past Medical History Past Medical History: Diabetes-Type II, High Cholesterol, Hypertension, Hypothyroid Medical History Other: DIVERTICULITIS, PTSD, PACEMAKER Past Surgical History: Pacer/AICD, Other Surgical History Other: RIGHT SHOULDER Family History Family History: HTN Social History Social History: Negative, Lives with family ROS Dictation CONSTITUTIONAL: No chills, no fever, no weakness, no diaphoresis, no malaise. HEAD/FACE: No signs of trauma. EENT: No eye pain, no blurred vision, no tearing, no double vision, no ear pain, no ear discharge, no nose pain, no nasal congestion, no throat pain, no throat swelling, no mouth pain. RESPIRATORY: No cough, no orthopnea, no SOB, no stridor, no wheezing. CARDIOVASCULAR: No chest pain, no edema, no palpitations, no syncope. GASTROINTESTINAL/ABDOMINAL: Lower abdominal pain GENITOURINARY: Urgency and frequency, no dysuria MUSCULOSKELETAL: No back pain, no gout, no joint pain, no joint swelling, no muscle pain, no muscle stiffness, no neck pain. INTEGUMENTARY: No change in color, no change in hair/nails, no dryness, no lesion, no lumps, no rash. NEUROLOGICAL/PSYCH: No anxiety, not depressed, no emotional problem, no headache, no numbness, no pre-existing deficit, no history of seizures, no tremors, no weakness. HEMATOLOGIC/LYMPHATIC: Not anemic, no history of blood clots, no apparent bleeding, no bruising, glands not swollen. All Systems Negative, Except as Noted. Physical Exam Physical Exam Dictation VITAL SIGNS: Reviewed. GENERAL APPEARANCE: Alert, oriented x3, no acute distress, obese. HEAD AND FACE: Non-traumatic. EYES: PERRL, pink conjunctivas, eyelid no trauma, anterior chamber clear. EARS: Pinnas intact and no signs of trauma or erythema. Ear canals clear and no discharge. TMs no erythema. NOSE: No discharge, no bleeding. OROPHARYNX: Mouth normal, teeth no caries, tongue pink. Pharynx clear, no erythema. Tonsils no exudates, no abscesses noted. Mucous membrane moist. NECK: Supple, non-tender, no thyromegaly, no masses, no JVD, no bruits. BREAST: Deferred. CHEST: No tenderness, no crepitus, no paradoxical movement, no retractions. LUNGS: Clear, well-ventilated, symmetric, no rales, no wheezing, no rhonchi, no stridor, good breath sounds bilaterally. HEART: Regular rate, regular rhythm, no murmur, no gallops. VASCULAR: No peripheral edema. ABDOMEN: Mild suprapubic tenderness RECTAL: Deferred. GENITAL: Deferred. NEUROLOGICAL: Normal speech, gross motor function intact, gross sensory function intact. MUSCULOSKELETAL: Neck nontender, full range of motion, back nontender, full range of motion. EXTREMITIES: Nontender, full range of motion. SKIN: Color pink, dry, no turgor, no rash, no lacerations, no abrasions, no contusions. LYMPHATICS: Deferred. Results Laboratory and Microbiology Lab and Micro Result Laboratory Tests Test 09/30/24 07:27 09/30/24 07:44 Urine Color LIGHT-YELLOW (YELLOW) Urine Appearance CLEAR (CLEAR) Urine pH 5.5 (5.0-8.0) Urine Specific [place] 1.011 (1.001-1.031) Urine Protein NEGATIVE mg/dL (NEGATIVE) Urine Glucose (UA) NEGATIVE mg/dL (NEGATIVE) Urine Ketones NEGATIVE mg/dL (NEGATIVE) Urine Occult Blood SMALL (NEGATIVE) H Urine Nitrate NEGATIVE (NEGATIVE) Urine Bilirubin NEGATIVE mg/dL (NEGATIVE) Urine Urobilinogen 0.2 mg/dL (0.2-1.0) Urine Leukocyte Esterase NEGATIVE Arlene/uL White Blood Count 6.1 K/uL (4.8-10.8) Red Blood Count 4.72 MIL/uL (4.50-6.20) Hemoglobin 14.4 g/dL (14.0-18.0) Hematocrit 42.5 % (42-54) Mean Corpuscular Volume 90.0 fL (79-99) Mean Corpuscular Hemoglobin 30.5 pg (27.0-33.0) Mean Corpuscular Hemoglobin Concent 33.9 g/dL (32.0-36.0) Red Cell Distribution Width 12.7 % (11.0-15.5) Platelet Count 206 K/uL (130-400) Mean Platelet Volume 9.8 fL (7.5-10.5) Immature Granulocyte % (Auto) 0.2 % (0-1) Neutrophils (%) (Auto) 54.7 % (40.0-77.0) Lymphocytes (%) (Auto) 31.4 % (21.0-51.0) Monocytes (%) (Auto) 8.1 % (3.0-13.0) Eosinophils (%) (Auto) 4.6 % (0.0-8.0) Basophils (%) (Auto) 1.0 % (0.0-5.0) Neutrophils # (Auto) 3.4 K/uL (1.8-7.7) Lymphocytes # (Auto) 1.9 K/uL (1.0-4.8) Monocytes # (Auto) 0.5 K/uL (0.1-1.0) Eosinophils # (Auto) 0.28 K/uL (0.00-0.70) Basophils # (Auto) 0.06 K/uL (0.00-0.20) Absolute Immature Granulocyte (auto 0.01 K/uL (0-1) Nucleated Red Blood Cells 0.0 % (0.0-0.19) Sodium Level 137 mmol/L (136-145) Potassium Level 3.9 mmol/L (3.5-5.1) Chloride Level 104 mmol/L (101-111) Carbon Dioxide Level 27 mmol/L (21-32) Blood Urea Nitrogen 13 mg/dL (7-18) Creatinine 1.2 mg/dL (0.5-1.3) Glomerular Filtration Rate Calc 61 mL/min (>90) Random Glucose 124 mg/dL (70-105) H Total Calcium 9.1 mg/dL (8.5-10.1) Total Bilirubin 0.5 mg/dL (0.2-1.0) Direct Bilirubin 0.1 mg/dL (0.0-0.3) Aspartate Amino Transf (AST/SGOT) 26 U/L (10-37) Alanine Aminotransferase (ALT/SGPT) 24 U/L (12-78) Alkaline Phosphatase 77 U/L (50-136) Total Creatine Kinase 252 U/L (21-232) #H Total Protein 7.1 g/dL (6.0-8.3) Albumin 3.7 g/dL (3.5-5.0) Lipase 46 U/L (16-77) MDM CC: Suprapubic pain, urgency and frequency Historian: Patient Comorbidities: Advanced age, diabetes type 2, dyslipidemia, hypertension, hypothyroid, PTSD, pacemaker, history of diverticulitis Limitations by social determinants of health: None Differential diagnosis: UTI, prostatitis, diverticulitis, other GI pathology, other urinary pathology Vital signs: Mild hypertension 147/78, otherwise vital signs stable. Labs (independently ordered and interpreted by me): CBC is normal, metabolic panel normal, liver enzymes normal. CK normal. Lipase normal. Urinalysis shows trace blood otherwise normal. CT of the abdomen and pelvis with contrast shows diverticulosis with no other major abnormalities. Based on the patient's presentation, I suspect that the patient may have mild diverticulitis. The white count is normal and vital signs are stable, but he does have significant diverticula and he has a bit tender on the suprapubic area in the left lower quadrant consistent with diverticulitis. He has no signs of dehydration he is p.o. tolerant nontoxic in appearance. At this point in time I think it is safe to treat with oral Augmentin and recommend PCP follow up. Patient reports he can see Dr. Liz the next week. We will also prescribed Tylenol with codeine to use for pain. ED Course Orders Procedure Category Date Status Time Cbc With Differential LAB 09/30/24 Complete 07:30 Urinalysis Profile LAB 09/30/24 Complete 07:30 Creatine Kinase, Total LAB 09/30/24 Complete 07:30 Lipase LAB 09/30/24 Complete 07:30 Basic Metabolic Panel LAB 09/30/24 Complete 07:30 Hepatic Function Panel LAB 09/30/24 Complete 07:30 Ct Abdomen/Pelvis CT 09/30/24 Resulted W/Contrast 07:36 Lactated Ringers PHA 09/30/24 Complete 1000ml (Lactated 08:00 Iohexol (Omnipaque) PHA 09/30/24 Complete 09:41 Current Medications Medications (Trade) Dose Ordered Sig/Héctor Route PRN Reason Start Time Stop Time Status Last Admin Dose Admin Iohexol (Omnipaque) 75 ml STK-MED ONCE IV 09/30/24 09:41 09/30/24 09:41 DC Lactated Ringer's 1,000 ml @ 0 mls/hr ONCE ONCE IV 09/30/24 08:00 09/30/24 08:01 DC 09/30/24 07:51 Vital Signs Date Time Temp Pulse Resp B/P (MAP) Pulse Ox O2 Delivery O2 Flow Rate FiO2 09/30/24 10:41 97.9 60 15 149/68 99 Room Air* 0 21 09/30/24 09:38 97.9 60 19 142/70 98 Room Air* 0 21 09/30/24 07:55 98.2 69 15 158/57 96 Room Air* 0 21 09/30/24 07:19 97.5 91 18 147/78 96 Room Air DX & DISP Disposition: Discharge Departure Impression: Primary Impression: Acute diverticulitis Condition: Stable Scripts Amoxicillin/Potassium Clav (Amox Tr-K Clv 875-125 mg Tab) 875 Mg-125 Mg Tablet 1 TAB PO BID for 10 Days, #20 TAB 0 Refills Prov: MINNIE DODSON DO 09/30/24 Acetaminophen with Codeine (Acetaminophen-Cod #3 Tablet) 300 Mg-30 Mg Tablet 1 TAB PO Q6HPRN PRN for pain for 7 Days, #28 TAB 0 Refills Prov: MINNIE DODSON DO 09/30/24 Referrals: PARMINDER LIZ MD (PCP) MINNIE DODSON DO Sep 30, 2024 07:43
[2024-09-30 07:47] LABS: APPEARANCE,URINE CLEAR (CLEAR); BILIRUBIN,URINE NEGATIVE (NEGATIVE); COLOR,URINE LIGHT-YELLOW (YELLOW); GLUCOSE, URINE (UA) NEGATIVE (NEGATIVE); KETONES,URINE NEGATIVE (NEGATIVE); LEUKOCYTE ESTERASE ,URINE NEGATIVE Leu/uL (NEGATIVE); NITRATE,URINE NEGATIVE (NEGATIVE); OCCULT BLOOD,URINE SMALL (NEGATIVE); PH,URINE 5.5 (5.0-8.0); PROTEIN,URINE NEGATIVE (NEGATIVE); UROBILINOGEN,URINE 0.2 mg/dL (0.2-1.0)
[2024-09-30 07:50] LABS: ADD UA MICROSCOPIC NO
[2024-09-30] MEDS: LACTATED RINGERS 1000ML 1,000 ML IV ONE (07:51)
[2024-09-30 07:54] LABS: BASOPHILS # (AUTO) 0.06 K/uL (0.00-0.20); EOSINOPHILS # (AUTO) 0.28 K/uL (0.00-0.70); EOSINOPHILS % (AUTO) 4.6 % (0.0-8.0); HEMATOCRIT 42.5 % (42-54); IMMATURE GRANULOCYTE ABSOLUTE 0.01 K/uL (0-1); LYMPHOCYTES # (AUTO) 1.9 K/uL (1.0-4.8); LYMPHOCYTES % (AUTO) 31.4 % (21.0-51.0); MEAN CORPUSCULAR HEMOGLOBIN 30.5 pg (27.0-33.0); MEAN CORPUSCULAR HGB CONC 33.9 g/dL (32.0-36.0); MONOCYTES # (AUTO) 0.5 K/uL (0.1-1.0); MONOCYTES % (AUTO) 8.1 % (3.0-13.0); NEUTROPHILS # (AUTO) 3.4 K/uL (1.8-7.7); NEUTROPHILS % (AUTO) 54.7 % (40.0-77.0); PLATELET COUNT (AUTO) 206 K/uL (130-400); RED BLOOD CELL COUNT(AUTO) 4.72 MIL/uL (4.50-6.20); RED CELL DISTRIBUTION WIDTH 12.7 % (11.0-15.5); WHITE BLOOD COUNT (AUTO) 6.1 K/uL (4.8-10.8)
[2024-09-30 08:17] LABS: ALBUMIN 3.7 g/dL (3.5-5.0); BILIRUBIN,DIRECT 0.1 mg/dL (0.0-0.3); BILIRUBIN,TOTAL 0.5 mg/dL (0.2-1.0); CREATININE 1.2 mg/dL (0.5-1.3); POTASSIUM 3.9 mmol/L (3.5-5.1); TOTAL PROTEIN, SERUM 7.1 g/dL (6.0-8.3)
[2024-09-30] MEDS ORDERED: IOHEXOL-350 75 ML VIAL IV ONE (09:41)
--- NOTE | 2024-09-30 09:42 | NUR ---
PATIENT STATES HE TOOK HIS METFORMIN YESTERDAY 09/29/24 @ 1700, ON SITE [employer] TECHNICIAN MADE AWARE
--- NOTE | 2024-09-30 10:35 | HMCIMG ---
Exam Type: CT ABDOMEN AND PELVIS WITH ORAL AND IV CONTRAST Clinical Information: lower abd pain, hx diverticulitis Findings: The lung bases are clear. The liver, gallbladder, spleen, pancreas, adrenal glands and kidneys are normal in appearance. No pathologic lymphadenopathy is evident. The intestinal gas pattern shows no evidence of dilatation to suggest obstruction or adynamic ileus. There is no evidence of constipation and no bowel wall lesions are noted to suggest neoplasm. The colon is unremarkable except for diverticulosis of the sigmoid, without acute inflammation to suggest diverticulitis. Specifically, no large or small bowel dilatation or air/ fluid levels are noted to suggest obstruction or adynamic ileus. There is no evidence of pneumoperitoneum. The appendix is unremarkable. The pelvic viscera are normal in CT appearance. The perirectal fat planes are clear. The visualized osseous elements are normal for the patient's age. IMPRESSION: NEGATIVE CT SCAN OF THE ABDOMEN AND PELVIS WITH ORAL AND IV CONTRAST EXCEPT FOR DIVERTICULOSIS.
[2024-09-30] MEDS ORDERED: AMOX1TAB16 PO (10:52)
[2024-09-30] MEDS ORDERED: ACET-2079 PO (10:52)
--- NOTE | 2024-09-30 11:09 | NUR ---
DC PATIENT WAS DC'D BY DR Garcia DODSON TODAY I DC'D PATIENTS IV WITH CATH STILL INTACT AND APPLIED 2X2 GAUZE WITH COBAN I EXPLAINED TO PATIENT TO FOLLOW UP WITH PCP, TAKE NEW PRESCRIPTIONS DIRECTED, AND PROVIDED INFO BASED ON DIAGNOSIS I ANSWERED ANY FURTHER QUESTIONS FROM PATIENT PATIENT AMBULATED OUT OF ED ACCOMPANIED BY , NO COMPLICATIONS
[2024-09-30 11:10] VITALS: BP 146/68; PULSE 63; RESP 19; TEMP 97.8; O2SAT 99
== END 2024-09-30 11:07 | disposition home or self-care (01) ==
LOC: EDH 07:17
DX: K57.32 Diverticulitis of large intestine without perforation or abscess without bleeding (principal); E03.9 Hypothyroidism, unspecified; E11.9 Type 2 diabetes mellitus without complications; E78.00 Pure hypercholesterolemia, unspecified; F43.10 Post-traumatic stress disorder, unspecified; I10 Essential (primary) hypertension; Z79.1 Long term (current) use of non-steroidal anti-inflammatories (NSAID); Z79.82 Long term (current) use of aspirin; Z95.810 Presence of automatic (implantable) cardiac defibrillator
CPT/HCPCS: 99285; 74177; 96360; 82550; 80076; 80048; 83690; 85025; 81003; 36415; J7120; Q9967

== ENCOUNTER 2024-11-13 09:57 | Emergency (ER) | payer OTHER ==
[~2024-11-13] VITALS: Ht 167.6 cm; Wt 83.0 kg
[~2024-11-13 09:57] MED LIST changes: +ACET-2079 PO; +AMOX1TAB16 PO
[2024-11-13 09:59] VITALS: TEMP 98.1
--- NOTE | 2024-11-13 10:08 | ERN ---
ED Note History of Present Illness Stated Complaint: CHRONIC LOWER BACK PAIN Chief Complaint: Back Pain-No Injury Time Seen by MD: 10:00 Dictation: PATIENT IS AN 79-YEAR-OLD MALE COMING IN TODAY WITH COMPLAINTS OF CHRONIC LUMBAR PAIN THAT RADIATES TO THE POSTERIOR LEFT LEG HE HAS HAD OFF AND ON FOR SEVERAL YEARS. NO FEVER NO CHILLS NO CHANGE IN URINATION. STATES HE SAW , NEUROSURGEON MORE THAN TWO YEARS AGO WHO TOLD HIM HE HAD MULTIPLE HERNIATED DISC AND THERE WAS GOING TO BE A POTENTIAL FOR SURGERY IN THE FUTURE. HE STATES HE WAS ALSO GETTING PHYSICAL THERAPY DR. THOMAS, PHYSIATRY. HE SAID HE HAS NOT SEEN THE SURGEON IN MORE THAN TWO YEARS, DID NOT SEE DR. THOMAS FOR THE LAST SIX MONTHS. STATES HIS PAIN HAS GOTTEN WORSE OVER THE LAST COUPLE OF DAYS. NO CHANGE IN BOWEL FUNCTION. HE HAS TAKEN [id number] TYLENOL ARTHRITIS 650 MG Q 8 HOURS NEEDED. Allergies: Coded Allergies: No Known Drug Allergies (Unverified Allergy, 03/24/12) Home Meds Active Scripts Amoxicillin/Potassium Clav (Amox Tr-K Clv 875-125 mg Tab) 875 Mg-125 Mg Tablet, 1 TAB PO BID for 10 Days, #20 TAB 0 Refills Prov:MINNIE DODSON DO 09/30/24 Acetaminophen with Codeine (Acetaminophen-Cod #3 Tablet) 300 Mg-30 Mg Tablet, 1 TAB PO Q6HPRN PRN for pain for 7 Days, #28 TAB 0 Refills Prov:MINNIE DODSON DO 09/30/24 Cephalexin Monohydrate (Keflex) 500 Mg Cap, 500 MG PO BID for 7 Days, #14 CAP Prov:EMELY ADAMS MD 09/27/23 Albuterol Sulfate (Proair Digihaler) 90 Mcg Aer.pw.bas, 2 PUFF IH QID, #1 UNIT Prov:JEAN RENEE MD 08/04/23 Prednisone (Prednisone) 20 Mg Tablet, 1 TAB PO AD for 6 Days, #14 TAB 0 Refills TAKE 3 TAB BY MOUTH daily X3 DAYS, THEN TAKE 2 TAB BY MOUTH daily X2 DAYS, THEN TAKE 1 TAB BY MOUTH ONCE A DAY X1 DAY. Prov:JEAN RENEE MD 08/04/23 Cefuroxime Axetil (Cefuroxime) 500 Mg Tablet, 500 MG PO BID, #20 TAB Prov:JEAN RENEE MD 08/04/23 Ibuprofen (Motrin/Advil) 800 Mg Tab, 800 MG PO TID, #30 TAB Prov:JEAN RENEE MD 02/04/23 Reported Medications Tamsulosin HCl (Flomax) 0.4 Mg Cap.er.24h, 0.4 MG PO DAILY, CAPSULE.DR 11/17/20 Rosuvastatin Calcium (Rosuvastatin Calcium) 40 Mg Tablet, 40 MG PO HS, TAB 11/17/20 Sildenafil Citrate (Viagra) 100 Mg Tablet, 100 MG PO AD, TAB 11/17/20 Multivitamin (Multivitamin) 1 Each Tablet, 1 EACH PO DAILY, TAB 11/17/20 Aspirin (Aspirin) 81 Mg Tab.chew, 81 MG PO DAILY, TAB.CHEW 11/17/20 Levothyroxine Sodium (Synthroid 75 Mcg Tab) 75 Mcg Tablet, 75 MCG PO ACBKFST, TAB 11/17/20 Ezetimibe (Zetia) 10 Mg Tablet, 10 MG PO HS, TAB 11/17/20 Ranolazine (Ranolazine ER) 500 Mg Tab.er.12h, 500 MG PO BID, TAB 11/17/20 Past Medical History Past Medical History: Diabetes-Type II, High Cholesterol, Heart Disease, Hypertension, Hypothyroid Additional Past Medical Hx: DIVERTICULITIS, PTSD, CHRONIC BACK PAIN Surgical History: Pacer/AICD, Other Surgical History Other: RIGHT SHOULDER Family History: HTN Social History: Negative, Lives with family RN Note Reviewed/Agreed w/PFSH: Yes Review of System Dictation CONSTITUTIONAL: NEGATIVE EXCEPT FOR HPI HEAD/FACE: NEGATIVE EXCEPT FOR HPI EENT: NEGATIVE EXCEPT FOR HPI RESPIRATORY: NEGATIVE EXCEPT FOR HPI GASTROINTESTINAL/ABDOMINAL: NEGATIVE EXCEPT FOR HPI GENITOURINARY: NEGATIVE EXCEPT FOR HPI MUSCULOSKELETAL: NEGATIVE EXCEPT FOR HPI LUMBAR PAIN WITH RIGHT LEG RADICULOPATH Y INTEGUMENTARY: NEGATIVE EXCEPT FOR HPI NEUROLOGICAL/PSYCH: NEGATIVE EXCEPT FOR HPI HEMATOLOGIC/LYMPHATIC: NEGATIVE EXCEPT FOR HPI ALL SYSTEMS NEGATIVE, EXCEPT NOTED ABOVE. 13 POINT REVIEW OF SYSTEMS ASSESSED AND ALL NEGATIVE EXCEPT FOR ABOVE. Initial Vital Sign VS Vital Signs Date Time Temp Pulse Resp B/P (MAP) Pulse Ox O2 Delivery O2 Flow Rate FiO2 11/13/24 09:59 98.1 90 16 160/74 98 Room Air 0 Physical Exam Dictation VITAL SIGNS REVIEWED GENERAL APPEARANCE: ALERT, ORIENTED X 3, MODERATE ACUTE DISTRESS, WELL DEVELOPED, NOURISHED. HEAD AND FACE: NON-TRAUMATIC. EYES: PERRL, PINK CONJUNCTIVAS, EYELID NO TRAUMA, ANTERIOR CHAMBER WITH ARCUS SENILIS. EARS: PINNAS INTACT AND NO SIGNS OF TRAUMA OR ERYTHEMA EAR CANALS CLEAR AND NO DISCHARGE TM NO ERYTHEMA NOSE: NO DISCHARGE, NO BLEEDING. OROPHARYNX: MOUTH NORMAL, TONGUE PINK, PHARYNX CLEAR,NO ERYTHEMA, TONSILS NO EXUDATES, NO ABSCESSES NOTED, MUCOUS MEMB DEEPIKA MOIST NECK: SUPPLE, NON-TENDER, NO THYROMEGALY, NO MASSES, NO JVD, NO BRUITS BREAST:DEFERRED CHEST:NO TENDERNESS, NO CREPITUS, NO PARADOXICAL MOVEMENT, NO RETRACTIONS LUNGS:CLEAR, WELL-VENTILATED, SYMMETRIC, NO RALES, NO WHEEZING, NO RHONCHI, NO S TRIDOR, GOOD BREATH SOUNDS BILATERALLY HEART: REGULAR RATE, REGULAR RHYTHM, NO MURMUR, NO GALLOPS VASCULAR: NO PERIPHERAL EDEMA, ABDOMEN: SOFT, POSITIVE BOWEL SOUNDS, NONDISTENDED, NO GUARDING, NONTENDER, NO REBOUND, NO MASSES NO HEPATOMEGALY, NO SPLENOMEGALY, NO SEAY'S SIGN, NO HERNIAS. RECTAL: DEFERRED GENITAL: DEFERRED NEUROLOGICAL: NORMAL SPEECH, MOTOR FUNCTION INTACT, SENSORY FUNCTION INTACT MUSCULOSKELETAL: NECK NONTENDER, FULL RANGE OF MOTION DIFFUSE LUMBAR SACRAL PAIN WITHOUT STEP-OFFS. POSITIVE STRAIGHT LEG RAISE TO THE RIGHT AT 10. EXTREMITIES: NONTENDER, FULL RANGE OF MOTION SKIN: COLOR PINK, DRY, NO TURGOR, NO RASH, NO LACERATIONS, NO ABRASIONS, NO CONTUSIONS. LYMPHATIC: DEFERRED Results (Laboratory/Radiology) Laboratory/Radiology LUMBAR SPINE FILM DEMONSTRATES SEVERE DJD WITH LOSS OF SPACE AT L5-S1 FILM WAS COMPARED TO FILM FROM 08/12/2023. NO ACUTE CHANGES.EXAM: CR Lumbar Spine, 3 View. CLINICAL HISTORY: CHRONIC LUMBAR PAIN THAT RADIATES TO RIGHT LOWER EXTREMITY POSTERIOR COMPARISON: X-ray dated 01/03/2022. FINDINGS: BONES: No acute fracture or aggressive appearing osseous lesion. ALIGNMENT: Alignment is within normal limits. No significant scoliosis. DISCS / DEGENERATIVE CHANGES: Stable mild degenerative changes. SOFT TISSUES: The soft tissues are unremarkable. IMPRESSION: No acute lumbar spine abnormality evident. Stable mild degenerative change. /[facility] Reviewed?: Yes ED Course ED Course Orders Procedure Category Date Status Time Saline Lock Iv CPOE 11/13/24 Transmitted 10:04 Cyclobenzaprine Hcl PHA 11/13/24 Complete (Cyclobenzaprine Hcl 10:30 Dexamethasone 4mg/Ml PHA 11/13/24 Complete 1ml Vial (Dexametha 10:30 Ketorolac PHA 11/13/24 Complete Tromethamine 30mg/Ml 10:30 Acetaminophen With PHA 11/13/24 Complete Codeine (Tylenol-Code 10:30 Lumbar Spine 2-3vws RAD 11/13/24 Resulted 10:04 Current Medications Medications (Trade) Dose Ordered Sig/Héctor Route PRN Reason Start Time Stop Time Status Last Admin Dose Admin Acetaminophen/ Codeine Phosphate (TYLenol-coDEINE TAB) 2 tab ONCE ONCE PO 11/13/24 10:30 11/13/24 10:31 DC 11/13/24 10:35 Cyclobenzaprine HCl (Cyclobenzaprine HCl) 10 mg ONCE ONCE PO 11/13/24 10:30 11/13/24 10:31 DC 11/13/24 10:35 Dexamethasone Sodium Phosphate (dexaMETHasone 4MG/ML 1ML VIAL) 8 mg ONCE ONCE IM 11/13/24 10:30 11/13/24 10:31 DC 11/13/24 10:36 Ketorolac Tromethamine (toRADol) 30 mg ONCE ONCE IVP 11/13/24 10:30 11/13/24 10:31 DC 11/13/24 10:36 Vital Signs Date Time Temp Pulse Resp B/P (MAP) Pulse Ox O2 Delivery O2 Flow Rate FiO2 11/13/24 09:59 98.1 90 16 160/74 98 Room Air 0 1050/PAIN MARKEDLY IMPROVED AFTER TREATMENT. PATIENT DISCHARGED HOME WITH PREDNISONE AND OMEPRAZOLE. HE WILL BE TOLD TO CONTINUE NO ARTHRITIS [id number] AND SEE HIS PRIMARY CARE DOCTOR THURSDAY RECOMMEND REPEAT MRI Medical Decision Making MDM MEDICAL DECISION-MAKING BASED ON EMPIRIC TREATMENT FOR CHRONIC LOW BACK PAIN WITH RIGHT SCIATICA. REPEAT X-RAYS NO CHANGE FROM PRIOR FILMS. PATIENT DISCHARGED HOME WITH PREDNISONE AND OMEPRAZOLE TOLD CONTINUE TYLENOL ARTHRITIS [id number] Q 8 HOURS WARM COMPRESSES TO PAIN AND SEE HIS PRIMARY CARE DOCTOR THURSDAY FOR RECOMMENDED REPEAT MRI DX & DISP Disposition: Discharge Departure Impression: Primary Impression: Acute exacerbation of chronic low back pain Additional Impressions: Chronic sciatica of right side, DJD (degenerative joint disease), lumbosacral Condition: Stable Scripts Prednisone (Prednisone) 20 Mg Tablet 1 TAB PO AD for 6 Days, #14 TAB 0 Refills TAKE 1 TAB BY MOUTH THREE TIMES PER DAY X3 DAYS, THEN TAKE 1 TAB BY MOUTH TWICE A DAY X2 DAYS, THEN TAKE 1 TAB BY MOUTH ONCE A DAY X1 DAY. Prov: MELVINA HELM NP 11/13/24 Omeprazole (Omeprazole) 40 Mg Capsule.dr 1 CAP PO DAILY for 30 Days, #30 CAP 0 Refills Prov: MELVINA HELM NP 11/13/24 Additional Instructions: FOLLOW-UP WITH PRIMARY CARE PROVIDER IN 1 TO 2 DAYS. TAKE MEDICATIONS DIRECTED HERE IN THE EMERGENCY ROOM. OKAY TO CONTINUE HOME MEDICATIONS UNLESS OTHERWISE DISCUSSED DURING YOUR VISIT IN THE EMERGENCY ROOM TODAY. RETURN TO YOUR NEAREST EMERGENCY ROOM IF SYMPTOMS WORSEN OR IF THERE IS NO IMPROVEMENT. CALL 911 IF YOU NEED IMMEDIATE ASSISTANCE. TAKE TYLENOL OR MOTRIN [id number] NEEDED AND IF NO CONTRAINDICATIONS ARE PRESENT. INCREASE ORAL HYDRATION. A WOUND CULTURE OR URINE CULTURE WAS ORDERED HERE IN THE EMERGENCY ROOM DEPARTMENT PLEASE FOLLOW-UP WITH PRIMARY CARE PROVIDER AND ADVISE THEM TO GET REPEAT PORTS FROM OUR FACILITY. IF YOU HAD ANY SOCO WRAP/SPLINTS THAT WERE APPLIED HERE, PLEASE DO NOT REMOVE THEM UNTIL YOU SEE YOUR PRIMARY CARE OR SPECIALTY. TAKE PREDNISONE DIRECTED WITH FOOD. TAKE OMEPRAZOLE DAILY FOR THE NEXT 14 DAYS TO PROTECT YOUR STOMACH. CONTINUE TYLENOL ARTHRITIS [id number] 650 MG EVERY 8 HOURS FOR THE NEXT TWO DAYS. WARM COMPRESSES TO YOUR BACK AND NO LIFTING GREATER THAN 10 LB TO YOU SEE YOUR DOCTOR THURSDAY FOR RECOMMENDED REPEAT MRI. Referrals: PARMINDER IQBAL MD (PCP) Time of Disposition: 10:56 I have reviewed the case, and I agree with, Diagnosis and Plan MELVINA HELM NP Nov 13, 2024 10:08
[2024-11-13] MEDS: CYCLOBENZAPRINE HCL 10 MG TABLET PO ONE (10:35)
--- NOTE | 2024-11-13 10:39 | HMCIMG ---
EXAM: CR Lumbar Spine, 3 View. CLINICAL HISTORY: CHRONIC LUMBAR PAIN THAT RADIATES TO RIGHT LOWER EXTREMITY POSTERIOR COMPARISON: X-ray dated 01/03/2022. FINDINGS: BONES: No acute fracture or aggressive appearing osseous lesion. ALIGNMENT: Alignment is within normal limits. No significant scoliosis. DISCS / DEGENERATIVE CHANGES: Stable mild degenerative changes. SOFT TISSUES: The soft tissues are unremarkable. IMPRESSION: No acute lumbar spine abnormality evident. Stable mild degenerative change. /Orla
[2024-11-13] MEDS ORDERED: PRED20TA3 PO (10:57)
[2024-11-13] MEDS ORDERED: OMEP40CA21 PO (10:57)
[2024-11-13 11:10] VITALS: BP 152/75; PULSE 68; RESP 17; O2SAT 96
== END 2024-11-13 11:15 | disposition home or self-care (01) ==
LOC: EDH 09:57
DX: G89.29 Other chronic pain (principal); M54.9 Dorsalgia, unspecified; M47.816 Spondylosis without myelopathy or radiculopathy, lumbar region; M54.41 Lumbago with sciatica, right side; E03.9 Hypothyroidism, unspecified; E11.9 Type 2 diabetes mellitus without complications; E78.00 Pure hypercholesterolemia, unspecified; I10 Essential (primary) hypertension; Z79.1 Long term (current) use of non-steroidal anti-inflammatories (NSAID); Z79.82 Long term (current) use of aspirin; Z95.810 Presence of automatic (implantable) cardiac defibrillator
CPT/HCPCS: 99284; 96374; 72100; 96372; J1885; J1100

== ENCOUNTER → 2024-12-22 | Outpatient (CLI) | payer OTHER ==
[~2024-12-22] MED LIST changes: +OMEP40CA21 PO
--- NOTE | 2024-12-23 14:26 | HMCIMG ---
EXAM: MR Lumbar Spine Without Intravenous Contrast. CLINICAL HISTORY: Lumbar radiculopathy. TECHNIQUE: Magnetic resonance images of the lumbar spine in multiple planes. CONTRAST: None. COMPARISON: CR lumbar spine dated 11/13/2024. FINDINGS: For this examination, spinal levels were labeled assuming five [id number], lumbar-type vertebrae, with the inferior labeled L5. No acute fracture. Normal lordotic curvature. Normal vertebral body and disc heights. Multilevel anterior osteophytes. Small is noted in the superior endplate of T11 and T12 vertebral bodies. Normal marrow signal of the vertebrae. Conus medullaris terminates at the T12-L1 level. No abnormal epidural masses. The surrounding soft tissues are unremarkable. Individual spinal levels are described as follows: T12-L1: No disc bulge or herniation. No neural foraminal, lateral recess, or spinal canal stenosis. L1-L2: Mild disc bulge of 1 mm indenting the anterior thecal sac. No neural foraminal, lateral recess, or spinal canal stenosis. L2-L3: Mild disc bulge of 2 mm indenting the anterior thecal sac. Mild narrowing of both the lateral recesses and neuroforamina. Mild canal narrowing. L3-L4: Mild disc bulge of 2.5 mm indenting the anterior thecal sac and abutting bilateral traversing L4 nerve roots. Mild narrowing of both the lateral recesses and neuroforamina. Mild canal narrowing. L4-L5: Mild disc bulge of 2.5 mm indenting the anterior thecal sac. Mild narrowing of both the lateral recesses and neuroforamina. Mild canal narrowing. L5-S1: Mild disc bulge of 1 mm. No neural foraminal, lateral recess or spinal canal stenosis. IMPRESSION: 1. Normal marrow signal intensity. No acute fracture or subluxation. Multilevel anterior osteophytes. Small is noted in the superior endplate of T11 and T12 vertebral bodies. 2. Mild lumbar spondylosis is most pronounced at the L3-L4 level with a mild disc bulge of 2.5 mm indenting the anterior thecal sac and abutting bilateral traversing L4 nerve roots. Mild narrowing of both the lateral recesses and neuroforamina. Mild canal narrowing. 3. Mild narrowing of L2-L3 and L4-L5 lateral recesses and neural foramina and spinal canal. /Drifting
== END | disposition home or self-care (01) ==
LOC: RAH 09:34
PROVIDERS: ATTEND Physical Medicine & Rehabilitation
DX: M47.26 Other spondylosis with radiculopathy, lumbar region (principal); M51.16 Intervertebral disc disorders with radiculopathy, lumbar region; M48.061 Spinal stenosis, lumbar region without neurogenic claudication; M51.379 Other intervertebral disc degeneration, lumbosacral region without mention of lumbar back pain or lower extremity pain; M99.05 Segmental and somatic dysfunction of pelvic region; M54.51 Vertebrogenic low back pain; M25.78 Osteophyte, vertebrae; Z95.0 Presence of cardiac pacemaker
CPT/HCPCS: 72148